=== PATIENT | female | born 1935 | race Caucasian/White ===

== ENCOUNTER 2017-11-12 17:59 | Inpatient (IN) | payer MEDICARE, OTHER ==
[~2017-11-12] VITALS: Ht 157.5 cm; Wt 48.0 kg
[2017-11-12] MEDS ORDERED: normal saline 1000ML IV soln IVB ONE ×2 (18:20→19:20)
[2017-11-12] MEDS ORDERED: CefTRIAXone 1000mg IM Kit (w/lidocaine diluent) IM ONE (18:25)
[2017-11-12] MEDS ORDERED: vancomycin/NS 1 GM ADD-VANTAGE 250 ML IV ONE (18:25)
[2017-11-12 18:39] LABS: BASOPHILS # (AUTO) 0.1 X10'3 (0-0.2); BASOPHILS % (AUTO) 0.4 % (0-1); EOSINOPHILS # (AUTO) 0.5 X10'3 (0-0.9); EOSINOPHILS % (AUTO) 3.4 % (0-6); HEMATOCRIT 32.8 % (35.0-45.0); HEMOGLOBIN 10.5 g/dl (12.0-16.0); LYMPHOCYTES # (AUTO) 1.8 X10'3 (1.1-4.8); LYMPHOCYTES % (AUTO) 11.8 % (21-51); MEAN CORPUSCULAR HEMOGLOBIN 28.1 PG (27.0-31.0); MEAN CORPUSCULAR HGB CONC 31.9 % (33.0-36.5); MEAN CORPUSCULAR VOLUME 88.2 FL (78-98); MEAN PLATELET VOLUME 8.6 FL (7.4-10.4); MONOCYTES # (AUTO) 0.6 X10'3 (0-0.9); MONOCYTES % (AUTO) 4.3 % (2-12); NEUTROPHILS # (AUTO) 11.9 X10'3 (1.8-7.7); NEUTROPHILS % (AUTO) 80.1 % (42-75); PLATELET COUNT 280 X10'3 (140-440); RED BLOOD COUNT 3.73 X10'6 (4.20-5.60); WHITE BLOOD COUNT 14.9 X10'3 (4.5-11.0)
[2017-11-12 18:48] LABS: INR 1.2 INR; PARTIAL THROMBOPLASTIN TIME 34 SECONDS (22-32); PROTHROMBIN TIME 12.7 SECONDS (9.0-12.0)
[2017-11-12 18:54] LABS: ALANINE AMINOTRANSFERASE 12 U/L (12-78); ALBUMIN 1.8 G/DL (3.4-5.0); ALBUMIN/GLOBULIN RATIO 0.4 (1.1-1.5); ALKALINE PHOSPHATASE 131 IU/L (46-116); ANION GAP 8 (8-16); ASPARTATE AMINO TRANSFERASE 16 U/L (10-37); BILIRUBIN,TOTAL 0.4 MG/DL (0.1-1.0); BLOOD UREA NITROGEN 14 MG/DL (7-18); BUN/CREATININE RATIO 13.3 (6.6-38.0); CALCIUM 8.2 MG/DL (8.5-10.1); CHLORIDE 105 MMOL/L (99-107); CREATININE 1.05 MG/DL (0.40-0.90); GLUCOSE 108 MG/DL (70-104); MAGNESIUM 1.8 MG/DL (1.5-2.4); PHOSPHORUS 2.8 MG/DL (2.3-4.5); SODIUM 144 MMOL/L (135-145); TOTAL CARBON DIOXIDE 30.9 MMOL/L (24-32); TOTAL PROTEIN 6.2 G/DL (6.4-8.2); eGFR 50 ML/MIN
[2017-11-12] MEDS ORDERED: potassium 10mEq/100ml NS w/LIDOcaine (10mg/bag) IV ONE (19:20)
[2017-11-12] MEDS: normal saline 1000ml 1,000 ML IV SCH (20:39)
[2017-11-12] MEDS ORDERED: ondansetron/PF 4mg/2ml inj IV PRN (20:40)
[2017-11-12] MEDS ORDERED: acetaminophen 650mg rectal suppository RC PRN (20:40)
[2017-11-12] MEDS ORDERED: diphenhydrAMINE 50 mg/ml inj IV PRN (20:40)
[2017-11-12] MEDS: K and/or MAG REPLACEMENT MC SCH (20:40)
[2017-11-12] MEDS ORDERED: mag hydrox/Alum hydrox/simeth 30ml oral suspension PO PRN (20:40)
[2017-11-12] MEDS ORDERED: morphine sulfate 8 MG/ML SYRINGE IV PRN (20:40)
[2017-11-12] MEDS ORDERED: diphenhydrAMINE 25mg capsule PO PRN (20:40)
[2017-11-12] MEDS ORDERED: magnesium hydroxide 30ml (MOM) UD suspension PO PRN (20:40)
[2017-11-12] MEDS ORDERED: potassium Cl 20 mEq SR tablet PO PRN (20:40)
[2017-11-12] MEDS ORDERED: HYDROmorphone 1 mg/ml syringe IV PRN ×2 (20:40)
[2017-11-12] MEDS ORDERED: metoclopramide 5 mg/ml inj IV PRN (20:40)
[2017-11-12] MEDS ORDERED: bisacodyl 10mg suppository rectal RC PRN (20:40)
[2017-11-12] MEDS ORDERED: acetaminophen 325mg tablet PO PRN (20:40)
[2017-11-12] MEDS ORDERED: potassium Cl 40MEQ/NS 500ml 500 ML IV PRN ×2 (20:40)
[2017-11-12 22:20] VITALS: BP 144/66
[2017-11-12] MEDS ORDERED: piperacillin/tazo 3.375gm/50ml 50 ML IV ONE (23:26)
[2017-11-12] MEDS: HYDROcodone/acetaminophen 5mg/325mg tablet PO PRN (23:28)
[2017-11-13] VITALS: BP_SYST 121; BP_SYST 143; BP_DIAS 65; BP_DIAS 77
[2017-11-13] MEDS: potassium Cl 20 mEq SR tablet PO PRN ×3 (01:34→23:24)
[2017-11-13] MEDS: morphine sulfate 8 MG/ML SYRINGE IV PRN (02:12)
[2017-11-13] MEDS: temazepam 15mg capsule PO PRN ×2 (02:52→23:24)
[2017-11-13 04:12] LABS: CLARITY,URINE TURBID (Clear); COLOR,URINE BROWN (Yellow); GLUCOSE, URINE NEGATIVE (Neg); KETONES,URINE TRACE mg/dl (Neg); LEUKOCYTE ESTERASE ,URINE LARGE (Neg); NITRITES, URINE POSITIVE (Neg); OCCULT BLOOD,URINE LARGE (Neg); PH,URINE 8.5 (4.8-8.0); PROTEIN,URINE 100 mg/dl (Neg)
[2017-11-13 04:15] LABS: UA COLLECTION TYPE STRAIGHT CATH
[2017-11-13 04:19] LABS: BACTERIA,URINE 4+ /HPF (Neg); RBC,URINE TNTC /HPF (0-2); SQUAMOUS EPITHELIAL CELL,UR NONE SEEN /LPF (FEW); WBC,URINE TNTC /HPF (0-4)
[2017-11-13 05:27] LABS: BASOPHILS # (AUTO) 0.1 X10'3 (0-0.2); BASOPHILS % (AUTO) 0.4 % (0-1); EOSINOPHILS # (AUTO) 0.6 X10'3 (0-0.9); EOSINOPHILS % (AUTO) 4.2 % (0-6); HEMATOCRIT 29.9 % (35.0-45.0); HEMOGLOBIN 9.4 g/dl (12.0-16.0); LYMPHOCYTES # (AUTO) 1.7 X10'3 (1.1-4.8); LYMPHOCYTES % (AUTO) 11.9 % (21-51); MEAN CORPUSCULAR HEMOGLOBIN 28.2 PG (27.0-31.0); MEAN CORPUSCULAR HGB CONC 31.6 % (33.0-36.5); MEAN CORPUSCULAR VOLUME 89.4 FL (78-98); MONOCYTES # (AUTO) 0.5 X10'3 (0-0.9); MONOCYTES % (AUTO) 3.7 % (2-12); NEUTROPHILS # (AUTO) 11.3 X10'3 (1.8-7.7); NEUTROPHILS % (AUTO) 79.8 % (42-75); PLATELET COUNT 250 X10'3 (140-440); RED BLOOD COUNT 3.35 X10'6 (4.20-5.60); RED CELL DISTRIBUTION WIDTH 16.3 % (11.5-14.5); WHITE BLOOD COUNT 14.1 X10'3 (4.5-11.0)
[2017-11-13 06:00] VITALS: BP 111/72
[2017-11-13 06:02] LABS: ALANINE AMINOTRANSFERASE 14 U/L (12-78); ALBUMIN 1.6 G/DL (3.4-5.0); ALBUMIN/GLOBULIN RATIO 0.4 (1.1-1.5); ALKALINE PHOSPHATASE 122 IU/L (46-116); ANION GAP 7 (8-16); ASPARTATE AMINO TRANSFERASE 21 U/L (10-37); BILIRUBIN,TOTAL 0.4 MG/DL (0.1-1.0); BLOOD UREA NITROGEN 10 MG/DL (7-18); BUN/CREATININE RATIO 10.6 (6.6-38.0); CALCIUM 7.6 MG/DL (8.5-10.1); CHLORIDE 106 MMOL/L (99-107); CREATININE 0.94 MG/DL (0.40-0.90); GLUCOSE 90 MG/DL (70-104); SODIUM 144 MMOL/L (135-145); TOTAL CARBON DIOXIDE 31.3 MMOL/L (24-32); TOTAL PROTEIN 5.5 G/DL (6.4-8.2); eGFR 57 ML/MIN
[2017-11-13 07:08] LABS: POTASSIUM 2.8 MMOL/L (3.5-5.1)
[2017-11-13] MEDS: K and/or MAG REPLACEMENT MC SCH (08:00)
[2017-11-13] MEDS: piperacillin/tazo 3.375gm/50ml 50 ML IV SCH ×4 (08:07→23:24)
[2017-11-13] MEDS: heparin, porcine 5000 units/ml vial SQ SCH ×2 (08:07→20:48)
[2017-11-13] MEDS: pantoprazole 40mg Tablet.DR PO SCH (08:07)
[2017-11-13] MEDS: docusate sod 100mg capsule PO SCH ×2 (08:07→20:48)
[2017-11-13] MEDS: normal saline 1000ml 1,000 ML IV SCH ×2 (10:00→20:00)
[2017-11-13 10:52] VITALS: BP 137/68
[2017-11-13] MEDS: HYDROcodone/acetaminophen 5mg/325mg tablet PO PRN (12:48)
[2017-11-13] MEDS ORDERED: NO HOME MEDS (13:45)
[2017-11-13] MEDS: lactobacillus rhamnosus 10,000 MMU CELLS/CAPSULE PO SCH (17:30)
[2017-11-13 19:00] VITALS: BP 127/65
[2017-11-13] MEDS: vancomycin/NS 1 GM ADD-VANTAGE 250 ML IV SCH (20:48)
[2017-11-14] VITALS: BP 143/77
[2017-11-14] MEDS: HYDROcodone/acetaminophen 5mg/325mg tablet PO PRN (01:51)
[2017-11-14] MEDS: normal saline 1000ml 1,000 ML IV SCH ×3 (02:39→21:01)
[2017-11-14] MEDS: potassium Cl 20 mEq SR tablet PO PRN (05:41)
[2017-11-14 05:48] LABS: BASOPHILS # (AUTO) 0.1 X10'3 (0-0.2); BASOPHILS % (AUTO) 0.8 % (0-1); EOSINOPHILS # (AUTO) 0.7 X10'3 (0-0.9); EOSINOPHILS % (AUTO) 6.2 % (0-6); HEMOGLOBIN 9.5 g/dl (12.0-16.0); LYMPHOCYTES # (AUTO) 1.5 X10'3 (1.1-4.8); LYMPHOCYTES % (AUTO) 13.9 % (21-51); MEAN CORPUSCULAR HEMOGLOBIN 28.3 PG (27.0-31.0); MEAN CORPUSCULAR HGB CONC 31.7 % (33.0-36.5); MEAN CORPUSCULAR VOLUME 89.1 FL (78-98); MEAN PLATELET VOLUME 9.1 FL (7.4-10.4); MONOCYTES # (AUTO) 0.7 X10'3 (0-0.9); MONOCYTES % (AUTO) 6.2 % (2-12); NEUTROPHILS # (AUTO) 7.9 X10'3 (1.8-7.7); NEUTROPHILS % (AUTO) 72.9 % (42-75); PLATELET COUNT 280 X10'3 (140-440); RED BLOOD COUNT 3.37 X10'6 (4.20-5.60); RED CELL DISTRIBUTION WIDTH 16.4 % (11.5-14.5); WHITE BLOOD COUNT 10.9 X10'3 (4.5-11.0)
[2017-11-14 06:16] LABS: ALANINE AMINOTRANSFERASE 8 U/L (12-78); ALBUMIN 1.6 G/DL (3.4-5.0); ALBUMIN/GLOBULIN RATIO 0.4 (1.1-1.5); ALKALINE PHOSPHATASE 115 IU/L (46-116); ANION GAP 5 (8-16); ASPARTATE AMINO TRANSFERASE 16 U/L (10-37); BILIRUBIN,TOTAL 0.4 MG/DL (0.1-1.0); BLOOD UREA NITROGEN 6 MG/DL (7-18); CALCIUM 7.7 MG/DL (8.5-10.1); CHLORIDE 110 MMOL/L (99-107); CREATININE 0.75 MG/DL (0.40-0.90); GLUCOSE 77 MG/DL (70-104); SODIUM 142 MMOL/L (135-145); TOTAL CARBON DIOXIDE 27.2 MMOL/L (24-32); TOTAL PROTEIN 5.4 G/DL (6.4-8.2); eGFR 74 ML/MIN
[2017-11-14 07:10] VITALS: BP 142/73
[2017-11-14] MEDS: heparin, porcine 5000 units/ml vial SQ SCH ×2 (07:41→20:55)
[2017-11-14] MEDS: docusate sod 100mg capsule PO SCH ×2 (07:41→20:00)
[2017-11-14] MEDS: piperacillin/tazo 3.375gm/50ml 50 ML IV SCH ×2 (07:41→16:38)
[2017-11-14] MEDS: K and/or MAG REPLACEMENT MC SCH (07:42)
[2017-11-14] MEDS: lactobacillus rhamnosus 10,000 MMU CELLS/CAPSULE PO SCH ×2 (07:42→17:09)
[2017-11-14] MEDS: pantoprazole 40mg Tablet.DR PO SCH (07:42)
[2017-11-14] MEDS: Protein Shake (high protein) 240ml (8oz) cup PO SCH ×3 (13:00→19:00)
[2017-11-14 13:06] VITALS: BP 146/75
[2017-11-14 19:00] VITALS: BP 125/69
[2017-11-14] MEDS ORDERED: LORazepam 2 mg/ml vial IV PRN (19:25)
[2017-11-14] MEDS: LORazepam 2 mg/ml vial IV PRN (19:39)
[2017-11-14] MEDS: morphine sulfate 8 MG/ML SYRINGE IV PRN (20:39)
[2017-11-14] MEDS: vancomycin/NS 1 GM ADD-VANTAGE 250 ML IV SCH (20:44)
[2017-11-15] MEDS: piperacillin/tazo 3.375gm/50ml 50 ML IV SCH ×3 (00:39→15:33)
[2017-11-15] MEDS: HYDROcodone/acetaminophen 10/325mg tab PO PRN ×2 (00:46→08:20)
[2017-11-15 00:48] VITALS: BP 134/77
[2017-11-15] MEDS: morphine sulfate 8 MG/ML SYRINGE IV PRN ×3 (05:44→20:07)
[2017-11-15 06:36] LABS: BASOPHILS # (AUTO) 0.1 X10'3 (0-0.2); BASOPHILS % (AUTO) 0.6 % (0-1); EOSINOPHILS # (AUTO) 0.8 X10'3 (0-0.9); EOSINOPHILS % (AUTO) 5.6 % (0-6); HEMATOCRIT 30.7 % (35.0-45.0); HEMOGLOBIN 9.5 g/dl (12.0-16.0); LYMPHOCYTES # (AUTO) 1.5 X10'3 (1.1-4.8); LYMPHOCYTES % (AUTO) 11.4 % (21-51); MEAN CORPUSCULAR HEMOGLOBIN 27.8 PG (27.0-31.0); MEAN CORPUSCULAR HGB CONC 31.1 % (33.0-36.5); MEAN CORPUSCULAR VOLUME 89.5 FL (78-98); MEAN PLATELET VOLUME 9.1 FL (7.4-10.4); MONOCYTES # (AUTO) 0.7 X10'3 (0-0.9); MONOCYTES % (AUTO) 5.1 % (2-12); NEUTROPHILS # (AUTO) 10.5 X10'3 (1.8-7.7); NEUTROPHILS % (AUTO) 77.3 % (42-75); PLATELET COUNT 308 X10'3 (140-440); RED BLOOD COUNT 3.43 X10'6 (4.20-5.60); RED CELL DISTRIBUTION WIDTH 16.2 % (11.5-14.5); WHITE BLOOD COUNT 13.5 X10'3 (4.5-11.0)
[2017-11-15 07:08] VITALS: BP 139/72
[2017-11-15 07:30] LABS: ALBUMIN 1.6 G/DL (3.4-5.0); ANION GAP 7 (8-16); BILIRUBIN,TOTAL 0.4 MG/DL (0.1-1.0); BLOOD UREA NITROGEN 5 MG/DL (7-18); BUN/CREATININE RATIO 5.6 (6.6-38.0); CALCIUM 8.3 MG/DL (8.5-10.1); CHLORIDE 109 MMOL/L (99-107); GLUCOSE 73 MG/DL (70-104); POTASSIUM 4.7 MMOL/L (3.5-5.1); SODIUM 142 MMOL/L (135-145); TOTAL CARBON DIOXIDE 26.1 MMOL/L (24-32); TOTAL PROTEIN 5.6 G/DL (6.4-8.2); eGFR 60 ML/MIN
[2017-11-15 07:31] LABS: ALANINE AMINOTRANSFERASE 12 U/L (12-78); ALBUMIN/GLOBULIN RATIO 0.4 (1.1-1.5); ALKALINE PHOSPHATASE 118 IU/L (46-116); ASPARTATE AMINO TRANSFERASE 16 U/L (10-37)
[2017-11-15] MEDS: Protein Shake (high protein) 240ml (8oz) cup PO SCH (08:00)
[2017-11-15] MEDS: K and/or MAG REPLACEMENT MC SCH (08:00)
[2017-11-15] MEDS: lactobacillus rhamnosus 10,000 MMU CELLS/CAPSULE PO SCH ×2 (08:20→17:04)
[2017-11-15] MEDS: pantoprazole 40mg Tablet.DR PO SCH (08:20)
[2017-11-15] MEDS: docusate sod 100mg capsule PO SCH ×2 (08:20→20:07)
[2017-11-15] MEDS: heparin, porcine 5000 units/ml vial SQ SCH ×2 (08:21→20:06)
[2017-11-15] MEDS: normal saline 1000ml 1,000 ML IV SCH ×2 (08:39→18:39)
[2017-11-15] MEDS: LORazepam 2 mg/ml vial IV PRN (09:57)
[2017-11-15 11:00] VITALS: BP 123/63
[2017-11-15] MEDS: LACTOSE-FREE FOOD 237ML (BOOST) PO SCH ×2 (13:00→18:00)
[2017-11-15 19:00] VITALS: BP 148/76
[2017-11-15] MEDS ORDERED: VANCOMYCIN LEVEL IV ONE (19:30)
[2017-11-15] MEDS: vancomycin/NS 1 GM ADD-VANTAGE 250 ML IV SCH (20:05)
[2017-11-16] VITALS: BP 123/70
[2017-11-16] MEDS: piperacillin/tazo 3.375gm/50ml 50 ML IV SCH ×4 (00:21→23:59)
[2017-11-16] MEDS: morphine sulfate 8 MG/ML SYRINGE IV PRN ×2 (00:39→07:48)
[2017-11-16] MEDS: normal saline 1000ml 1,000 ML IV SCH ×3 (01:49→22:16)
[2017-11-16 06:05] LABS: BASOPHILS # (AUTO) 0.1 X10'3 (0-0.2); BASOPHILS % (AUTO) 0.8 % (0-1); EOSINOPHILS # (AUTO) 0.8 X10'3 (0-0.9); EOSINOPHILS % (AUTO) 6.1 % (0-6); HEMATOCRIT 29.6 % (35.0-45.0); HEMOGLOBIN 9.2 g/dl (12.0-16.0); LYMPHOCYTES # (AUTO) 1.3 X10'3 (1.1-4.8); LYMPHOCYTES % (AUTO) 10.3 % (21-51); MEAN CORPUSCULAR HEMOGLOBIN 28.1 PG (27.0-31.0); MEAN CORPUSCULAR HGB CONC 31.1 % (33.0-36.5); MEAN CORPUSCULAR VOLUME 90.3 FL (78-98); MEAN PLATELET VOLUME 9.1 FL (7.4-10.4); MONOCYTES # (AUTO) 0.6 X10'3 (0-0.9); MONOCYTES % (AUTO) 4.9 % (2-12); NEUTROPHILS # (AUTO) 9.9 X10'3 (1.8-7.7); NEUTROPHILS % (AUTO) 77.9 % (42-75); PLATELET COUNT 337 X10'3 (140-440); RED BLOOD COUNT 3.28 X10'6 (4.20-5.60); RED CELL DISTRIBUTION WIDTH 16.3 % (11.5-14.5); WHITE BLOOD COUNT 12.8 X10'3 (4.5-11.0)
[2017-11-16 06:23] LABS: ALANINE AMINOTRANSFERASE 12 U/L (12-78); ALBUMIN 1.5 G/DL (3.4-5.0); ALBUMIN/GLOBULIN RATIO 0.4 (1.1-1.5); ALKALINE PHOSPHATASE 110 IU/L (46-116); ANION GAP 5 (8-16); ASPARTATE AMINO TRANSFERASE 13 U/L (10-37); BILIRUBIN,TOTAL 0.4 MG/DL (0.1-1.0); BLOOD UREA NITROGEN 5 MG/DL (7-18); CHLORIDE 110 MMOL/L (99-107); CREATININE 0.84 MG/DL (0.40-0.90); GLUCOSE 71 MG/DL (70-104); POTASSIUM 4.2 MMOL/L (3.5-5.1); SODIUM 143 MMOL/L (135-145); TOTAL CARBON DIOXIDE 28.5 MMOL/L (24-32); TOTAL PROTEIN 5.4 G/DL (6.4-8.2); eGFR 65 ML/MIN
[2017-11-16] MEDS: lactobacillus rhamnosus 10,000 MMU CELLS/CAPSULE PO SCH ×2 (07:49→16:35)
[2017-11-16] MEDS: pantoprazole 40mg Tablet.DR PO SCH (07:49)
[2017-11-16] MEDS: heparin, porcine 5000 units/ml vial SQ SCH ×2 (07:49→20:00)
[2017-11-16] MEDS: docusate sod 100mg capsule PO SCH ×2 (07:49→20:00)
[2017-11-16] MEDS: K and/or MAG REPLACEMENT MC SCH (07:50)
[2017-11-16] MEDS: LACTOSE-FREE FOOD 237ML (BOOST) PO SCH ×3 (07:50→18:00)
[2017-11-16 08:00] VITALS: BP 133/82
[2017-11-16] MEDS: LORazepam 2 mg/ml vial IV PRN (10:15)
[2017-11-16] MEDS: HYDROcodone/acetaminophen 10/325mg tab PO PRN (10:15)
[2017-11-16 11:00] VITALS: BP 133/74
[2017-11-16] MEDS ORDERED: LORazepam 2 mg/ml vial IV ONE (12:50)
[2017-11-16 18:00] VITALS: BP 129/72
[2017-11-16] MEDS ORDERED: vancomycin inj 1,250 MG in normal saline 250ml IV soln 250 ML IV SCH (20:00)
[2017-11-17] VITALS: BP 132/73
[2017-11-17 05:20] LABS: BASOPHILS # (AUTO) 0.1 X10'3 (0-0.2); BASOPHILS % (AUTO) 0.4 % (0-1); EOSINOPHILS # (AUTO) 0.6 X10'3 (0-0.9); EOSINOPHILS % (AUTO) 4.1 % (0-6); HEMATOCRIT 31.9 % (35.0-45.0); HEMOGLOBIN 10.1 g/dl (12.0-16.0); LYMPHOCYTES # (AUTO) 1.1 X10'3 (1.1-4.8); LYMPHOCYTES % (AUTO) 7.8 % (21-51); MEAN CORPUSCULAR HEMOGLOBIN 28.1 PG (27.0-31.0); MEAN CORPUSCULAR HGB CONC 31.6 % (33.0-36.5); MEAN CORPUSCULAR VOLUME 88.8 FL (78-98); MONOCYTES # (AUTO) 0.6 X10'3 (0-0.9); MONOCYTES % (AUTO) 4.4 % (2-12); NEUTROPHILS % (AUTO) 83.3 % (42-75); PLATELET COUNT 371 X10'3 (140-440); RED BLOOD COUNT 3.59 X10'6 (4.20-5.60); RED CELL DISTRIBUTION WIDTH 16.7 % (11.5-14.5); WHITE BLOOD COUNT 14.4 X10'3 (4.5-11.0)
[2017-11-17] MEDS: normal saline 1000ml 1,000 ML IV SCH (05:21)
[2017-11-17 05:35] LABS: ALANINE AMINOTRANSFERASE 12 U/L (12-78); ALBUMIN 1.7 G/DL (3.4-5.0); ALBUMIN/GLOBULIN RATIO 0.4 (1.1-1.5); ALKALINE PHOSPHATASE 117 IU/L (46-116); ANION GAP 9 (8-16); ASPARTATE AMINO TRANSFERASE 18 U/L (10-37); BILIRUBIN,TOTAL 0.5 MG/DL (0.1-1.0); BLOOD UREA NITROGEN 4 MG/DL (7-18); BUN/CREATININE RATIO 5.3 (6.6-38.0); CALCIUM 8.2 MG/DL (8.5-10.1); CHLORIDE 108 MMOL/L (99-107); CREATININE 0.76 MG/DL (0.40-0.90); GLUCOSE 56 MG/DL (70-104); POTASSIUM 3.7 MMOL/L (3.5-5.1); SODIUM 142 MMOL/L (135-145); TOTAL CARBON DIOXIDE 24.6 MMOL/L (24-32); eGFR 73 ML/MIN
[2017-11-17 07:18] VITALS: BP 127/69
[2017-11-17] MEDS: pantoprazole 40mg Tablet.DR PO SCH (07:30)
[2017-11-17] MEDS: lactobacillus rhamnosus 10,000 MMU CELLS/CAPSULE PO SCH ×2 (07:30→17:17)
[2017-11-17] MEDS: K and/or MAG REPLACEMENT MC SCH (08:00)
[2017-11-17] MEDS: heparin, porcine 5000 units/ml vial SQ SCH (09:48)
[2017-11-17] MEDS: docusate sod 100mg capsule PO SCH ×2 (09:48→19:49)
[2017-11-17] MEDS: LACTOSE-FREE FOOD 237ML (BOOST) PO SCH ×3 (09:49→19:48)
[2017-11-17] MEDS: piperacillin/tazo 3.375gm/50ml 50 ML IV SCH (09:49)
[2017-11-17 11:44] VITALS: BP 115/67
[2017-11-17 20:00] VITALS: BP 146/73
[2017-11-18 07:20] VITALS: BP 144/71
[2017-11-18] MEDS: pantoprazole 40mg Tablet.DR PO SCH (07:30)
[2017-11-18] MEDS: lactobacillus rhamnosus 10,000 MMU CELLS/CAPSULE PO SCH ×2 (07:30→16:38)
[2017-11-18] MEDS: LACTOSE-FREE FOOD 237ML (BOOST) PO SCH ×3 (08:00→17:53)
[2017-11-18] MEDS: docusate sod 100mg capsule PO SCH ×2 (08:00→20:44)
[2017-11-18] MEDS: K and/or MAG REPLACEMENT MC SCH (08:00)
[2017-11-18 19:00] VITALS: BP 126/75
[2017-11-18] MEDS: temazepam 15mg capsule PO PRN (22:30)
[2017-11-18] MEDS: LORazepam 1 MG tablet PO PRN (23:44)
[2017-11-19 07:00] VITALS: BP 133/68
[2017-11-19] MEDS: lactobacillus rhamnosus 10,000 MMU CELLS/CAPSULE PO SCH (07:30)
[2017-11-19] MEDS: pantoprazole 40mg Tablet.DR PO SCH (07:30)
[2017-11-19] MEDS: docusate sod 100mg capsule PO SCH ×2 (08:00→20:00)
[2017-11-19] MEDS: K and/or MAG REPLACEMENT MC SCH (08:00)
[2017-11-19] MEDS: LACTOSE-FREE FOOD 237ML (BOOST) PO SCH (08:00)
[2017-11-19] MEDS: HYDROcodone/acetaminophen 10/325mg tab PO PRN (08:42)
[2017-11-19] MEDS: LORazepam 1 MG tablet PO PRN (08:42)
[2017-11-19] MEDS ORDERED: VANCOMYCIN LEVEL IV ONE (19:30)
[2017-11-20 05:05] VITALS: BP 116/79
[2017-11-20] MEDS: K and/or MAG REPLACEMENT MC SCH (06:49)
[2017-11-20] MEDS: pantoprazole 40mg Tablet.DR PO SCH (07:06)
[2017-11-20] MEDS: docusate sod 100mg capsule PO SCH ×3 (07:06→20:00)
[2017-11-20 07:20] VITALS: BP 120/70
[2017-11-20 11:00] VITALS: BP 132/81
[2017-11-20] MEDS: HYDROcodone/acetaminophen 10/325mg tab PO PRN (17:55)
[2017-11-20 18:00] VITALS: BP 123/67
[2017-11-21 07:00] VITALS: BP 139/70
[2017-11-21] MEDS: K and/or MAG REPLACEMENT MC SCH (08:00)
[2017-11-21] MEDS: pantoprazole 40mg Tablet.DR PO SCH (08:27)
[2017-11-21] MEDS: docusate sod 100mg capsule PO SCH ×2 (08:27→20:00)
[2017-11-21] MEDS: LORazepam 1 MG tablet PO PRN (09:39)
[2017-11-21 11:00] VITALS: BP 131/75
[2017-11-21] MEDS: HYDROcodone/acetaminophen 10/325mg tab PO PRN (19:21)
[2017-11-21 20:00] VITALS: BP 149/98
[2017-11-22] MEDS ORDERED: morphine 10mg/0.5ml (conc. morphine) oral syringe PO PRN (05:20)
[2017-11-22 07:51] VITALS: BP 119/69
[2017-11-22] MEDS: K and/or MAG REPLACEMENT MC SCH (08:00)
[2017-11-22] MEDS: docusate sod 100mg capsule PO SCH (08:44)
[2017-11-22] MEDS: pantoprazole 40mg Tablet.DR PO SCH (08:44)
[2017-11-22] MEDS: LORazepam 1 MG tablet PO PRN (11:14)
== END 2017-11-22 11:22 | disposition hospice, home (50) | DRG 871 ==
LOC: ER 17:59 → ED HOLD 21:49 → SUR 3N 22:21
PROVIDERS: ADMIT Family Medicine; ATTEND Family Medicine
DX: A41.9 Sepsis, unspecified organism (principal); E43 Unspecified severe protein-calorie malnutrition; I96 Gangrene, not elsewhere classified; D68.9 Coagulation defect, unspecified; L97.419 Non-pressure chronic ulcer of right heel and midfoot with unspecified severity; E86.0 Dehydration; L03.115 Cellulitis of right lower limb; N39.0 Urinary tract infection, site not specified; Z68.1 Body mass index [BMI] 19.9 or less, adult; M86.8X7 Other osteomyelitis, ankle and foot; E87.6 Hypokalemia; F03.90 Unspecified dementia, unspecified severity, without behavioral disturbance, psychotic disturbance, mood disturbance, and anxiety; R29.6 Repeated falls; Z51.5 Encounter for palliative care; Z66 Do not resuscitate; Z91.048 Other nonmedicinal substance allergy status; Z82.49 Family history of ischemic heart disease and other diseases of the circulatory system; Z83.3 Family history of diabetes mellitus
CPT/HCPCS: 36415; 73521; 73650; 73718; 80053; 80202; 81001; 82948; 83605; 83735; 83880; 84100; 84484; 85025; 85610; 85730; 87040; 87070; 87077; 87088; 87186; 93005; 96365; 96372; 96375; 97162; 97530; 99291; A4353; A6212; A6213; A6223; A6449; J0696; J1644; J2060; J2270; J2543; J3370; J3480; J7030; J7042